=== PATIENT | female | born 1970 | race Caucasian/White ===

== ENCOUNTER 2017-08-13 23:55 | Inpatient (IN) | payer MEDICAID ==
[~2017-08-13] VITALS: Ht 162.6 cm; Wt 67.6 kg
[2017-08-13 23:56] VITALS: BP 117/87
--- NOTE | 2017-08-14 00:17 | NUR ---
47 Y/O F W/C/O NUMBNESS TO R ARM X 2320 LAST NIGHT. PT DENIES NUMBNESS TO ANY OTHER PART OF THE BODY. SYMETRICAL SMILE, SLIGHLTY WEAKNESS NOTED TO R ARM.PT ALERT AND ORIENTED X 4. NO OTHER S/S OF DISTRESS NOTED. ER MD MADE AWARE.
--- NOTE | 2017-08-14 00:22 | NUR ---
WINNIE HEWITT AT BEDSIDE EVALUATING PT.
--- NOTE | 2017-08-14 01:04 | NUR ---
PT TAKEN FOR CT SCAN
[2017-08-14 01:07] LABS: APPEARANCE,URINE CLEAR (CLEAR); BILIRUBIN,URINE NEGATIVE (NEGATIVE); BLOOD, URINE 2+ (NEGATIVE); LEUKOCYTE ESTERASE ,URINE NEGATIVE (NEGATIVE); NITRITE, URINE NEGATIVE (NEGATIVE); UGLUCOSE NEGATIVE (NEGATIVE)
[2017-08-14 01:07] LABS: BASOPHILS % (AUTO) 0.7 % (0.0-2.0); EOSINOPHILS # (AUTO) 0.1 K/uL (0-0.4); EOSINOPHILS % (AUTO) 1.2 % (0.0-4.0); HEMATOCRIT 32.8 % (36-48); HEMOGLOBIN 10.6 g/dL (12.0-16.0); LYMPHOCYTES # (AUTO) 1.9 K/uL (2.5-16.5); LYMPHOCYTES % (AUTO) 25.7 % (20.5-51.1); MEAN CORPUSCULAR HEMOGLOBIN 28 pg (27-31); MEAN CORPUSCULAR HGB CONC 32 g/dL (33-37); MEAN CORPUSCULAR VOLUME 85.8 fL (80-94); MONOCYTES # (AUTO) 0.5 K/uL (0.8-1.0); MONOCYTES % (AUTO) 6.2 % (1.7-9.3); NEUTROPHILS % (AUTO) 66.2 % (42.2-75.2); PLATELET COUNT (AUTO) 347 K/uL (140-450); RED BLOOD CELL COUNT(AUTO) 3.82 MIL/uL (4.20-5.40); RED CELL DISTRIBUTION WIDTH 14.8 % (11.6-13.7); WHITE BLOOD COUNT (AUTO) 7.5 K/uL (4.8-10.8)
--- NOTE | 2017-08-14 01:11 | NUR ---
PT MOVED TO BED 1
[2017-08-14 01:18] LABS: COLOR,URINE STRAW (YELLOW)
[2017-08-14 01:22] LABS: RBC,URINE 3-10 (FEW) /HPF (0-5); WBC,URINE 0-5 (RARE) /HPF (0-5)
[2017-08-14 01:48] LABS: ANION GAP 12.9 (8-16); CARBON DIOXIDE 24.7 mmol/L (21-32); CREATININE 0.7 mg/dL (0.6-1.3); POTASSIUM 3.6 mmol/L (3.5-5.1)
[2017-08-14 01:51] LABS: ALBUMIN 3.6 g/dL (3.4-5.0); MAGNESIUM 2.1 mg/dL (1.8-2.4); PHOSPHORUS 4.1 mg/dL (2.5-4.9); TOTAL BILIRUBIN 0.2 mg/dL (0.0-1.0)
[2017-08-14] MEDS ORDERED: ONDANSETRON 4 MG/2 ML VIAL IVP PRN (03:40)
[2017-08-14] MEDS ORDERED: HYDROcodone/APAP 7.5/325 MG 1 TAB PO PRN (03:40)
[2017-08-14] MEDS ORDERED: ACETAMINOPHEN 325 MG TAB PO PRN (03:40)
[2017-08-14] MEDS ORDERED: ASPIRIN 325 MG TAB PO ONE (03:55)
--- NOTE | 2017-08-14 04:00 | NUR ---
PT ARRIVED TO UNIT VIA GURNEY, PT AMBULATED FROM HALLWAY TO BED WITH STEADY GAIT. RECEIVED REPORT AT PT BEDSIDE FROM BLADDER TIERANIYA MCCOY, FOR CONTINUITY OF CARE. PATIENT IS AWAKE, A/OX4, ON ROOM AIR, GRENADIAN SPEAKING. ABLE TO MAKE NEEDS KNOWN, ABLE TO FOLLOW COMMANDS. PT SKIN IS INTACT, WARM AND DRY. PATIENT HAS PERIPHERAL IV SITE TO LEFT WRIST 20G, ASYMPTOMATIC, INTACT, PATENT. SR ON MONITOR, RESPIRATIONS EVEN AND UNLABORED. DISCUSSED PLAN OF CARE WITH PT, PT VERBALIZED UNDERSTANDING. PT STABLE, NO SIGNS OF DISTRESS NOTED AT THIS TIME. BED IN LOWEST POSITION, CALL LIGHT WITHIN REACH. WILL CONTINUE TO MONITOR.
--- NOTE | 2017-08-14 04:07 | NUR ---
Pt report given to YOLANDE KWAN. Transfer of care at this time.
[2017-08-14 04:21] LABS: BARBITURATE, URINE NEG. ng/ml (NEG <=200); BENZODIAZEPINE, URINE NEG. ng/mL (NEG <=200); CANNABINOID, URINE NEG. ng/mL (NEG <=50); COCAINE, URINE NEG. ng/mL (NEG <=300); OPIATE, URINE NEG. ng/mL (NEG <=2000); PHENCYCLIDINE SCREEN,URINE NEG. ng/mL (NEG <=25)
--- NOTE | 2017-08-14 04:50 | NUR ---
ADMINISTERED ORDERED MEDICATION, PT TOLERATED WELL. PT STABLE, NO SIGNS OF DISTRESS NOTED AT THIS TIME. BED IN LOWEST POSITION, CALL LIGHT WITHIN REACH. WILL CONTINUE TO MONITOR.
[2017-08-14 05:00] VITALS: BP 134/83
[2017-08-14 05:22] LABS: CHOL/HDL RATIO 2.7 (1-4.5); FREE T4 (FREE THYROXINE) 1.04 ng/dL (0.76-1.46); THYROID STIMULATING HORMONE 6.82 uIU/mL (0.34-3.74)
--- NOTE | 2017-08-14 06:29 | NUR ---
PT STABLE, NO SIGNS OF DISTRESS NOTED AT THIS TIME. BED IN LOWEST POSITION, CALL LIGHT WITHIN REACH. WILL CONTINUE TO MONITOR.
--- NOTE | 2017-08-14 07:16 | NUR ---
ENDORSED PT TO DAYS SHIFT RN FOR CONTINUITY OF CARE. PT IN STABLE CONDITION.
--- NOTE | 2017-08-14 07:17 | NUR ---
RECEIVED REPORT FROM CIVIL DESIGNER NURSE, PT IS RESTING IN BED, DR. SALCIDO IS AT BEDSIDE AT THIS TIME EXAMINING PT, PT IS AAOX4, AMBULATORY, PT HAS IV ON HER LEFT WRIST, PATENT, INTACT, FLUSHING WELL, SKIN IS INTACT, NO S/S OF RESPIRATORY DISTRESS OR DISCOMFORT NOTED, DISCUSSED PLAN OF CARE WITH PT, PT VERBALIZED UNDERSTANDING, CALL LIGHT IS WITHIN REACH, WILL CONTINUE TO MONITOR.
[2017-08-14 08:00] VITALS: BP 108/76
[2017-08-14] MEDS ORDERED: DOCUSATE SODIUM 100 MG GELCAP PO SCH (09:00)
--- NOTE | 2017-08-14 09:00 | NUR ---
PT IS RESTING IN BED, NO S/S OF RESPIRATORY DISTRESS OR DISCOMFORT NOTED, CALL LIGHT WITHIN REACH.
--- NOTE | 2017-08-14 10:07 | NUR ---
PATIENT HAS BEEN SCREENED AND CATEGORIZED MODERATE NUTRITION RISK. PATIENT WILL BE SEEN WITHIN 3-5 DAYS OF ADMISSION. 08/17/17 - 08/19/17 ERICH SPRINGER MBA, RD
--- NOTE | 2017-08-14 11:30 | NUR ---
PT SLEEPING IN BED, CALL LIGHT WITHIN REACH.
[2017-08-14 12:00] VITALS: BP 110/71
--- NOTE | 2017-08-14 14:15 | NUR ---
PT RESTING IN BED AT THIS TIME, WATCHING TV. CALL LIGHT WITHIN REACH.
--- NOTE | 2017-08-14 15:25 | NUR ---
PT DISCHARGE INSTRUCTIONS GIVEN, IV REMOVED, CATHETER TIP INTACT, ID WRIST BAND REMOVED. PT STABLE UPON DISCHARGE.
[2017-08-16 06:19] LABS: FOLIC ACID 14.4 ng/mL (>3.0)
[2017-08-17 17:55] LABS: ANTI-NUCLEAR ANTIBODY TITER POSITIVE (Negative)
== END 2017-08-14 15:25 | disposition home or self-care (01) | DRG 48 ==
LOC: MED 23:55 → MTU 08-14 03:37
PROVIDERS: ADMIT Family Medicine; ATTEND Family Medicine
DX: G56.21 Lesion of ulnar nerve, right upper limb (principal); N17.0 Acute kidney failure with tubular necrosis; I10 Essential (primary) hypertension; D64.9 Anemia, unspecified; E02 Subclinical iodine-deficiency hypothyroidism; M06.9 Rheumatoid arthritis, unspecified; Z79.899 Other long term (current) drug therapy
CPT/HCPCS: 36415; 70450; 71045; 80053; 80305; 81001; 81025; 82150; 82607; 82728; 82746; 83036; 83540; 83690; 83735; 83880; 84100; 84439; 84443; 84484; 85025; 85045; 85610; 85651; 85730; 86140; 86430; 87081; 87086; 93005; 99285